=== PATIENT | male | born 2000 | race Caucasian/White ===

== ENCOUNTER 2018-08-17 17:44 | Emergency (ER) | payer OTHER ==
[~2018-08-17] VITALS: Ht 188 cm; Wt 90.7 kg
[~2018-08-17 17:44] MED LIST: AMOX875 PO; OXYC10TA19 PO
== END 2018-08-17 19:04 | disposition home or self-care (01) ==
LOC: ER 17:44
DX: S59.911A Unspecified injury of right forearm, initial encounter (principal); M25.531 Pain in right wrist; V86.59XA Driver of other special all-terrain or other off-road motor vehicle injured in nontraffic accident, initial encounter
CPT/HCPCS: 73090; 99283-25